=== PATIENT | male | born 2000 | race Caucasian/White ===

== ENCOUNTER 2020-09-27 07:21 | Outpatient (CLI) | payer OTHER, SELFPAY ==
--- NOTE | ~2020-09-27 | US_ITS ---
EXAMINATION: US scrotum doppler DATE: 09/27/2020 08:00 INDICATION: Left testicular pain. TECHNIQUE: Grayscale and Doppler ultrasound images of the testes were obtained. COMPARISON: None. FINDINGS: The right testis measures 4.6 x 2.2 x 3.1 cm. The left testis measures 4.7 x 2.2 x 2.8 cm. There is normal vascular flow to both testes. The right epididymis is normal with normal vascular padmini w. The left epididymis is normal with normal vascular flow. There is no hydrocele. There is a left-si ded varicocele. IMPRESSION: 1. Left-sided varicocele. Reviewed, dictated and finalized at location A. IMPRESSION: 1. Left-sided varicocele.
== END 2020-09-27 07:22 | disposition home or self-care (01) ==
PROVIDERS: PCP Emergency Medicine; Visit Provider Emergency Medicine
DX: I86.1 Scrotal varices (principal)
CPT/HCPCS: 76870; 93976

== ENCOUNTER 2020-10-09 12:38 | Outpatient (CLI) | payer OTHER, SELFPAY ==
[2020-10-12 07:18] LABS: Rapid Plasma Reagin Non-Reactive (NonReactive)
[2020-10-12 08:34] LABS: HIV 1 RNA PCR <1.30 Log cps/mL; HIV 1 RNA PCR <20 Copies/mL; Hepatitis B DNA PCR <1.00 Log IU/mL; Hepatitis B DNA PCR <10 IU/mL; Hepatitis C RNA, Quant PCR <15 IU/mL
== END 2020-10-09 12:39 | disposition home or self-care (01) ==
PROVIDERS: PCP Emergency Medicine; Visit Provider Emergency Medicine
DX: Z20.2 Contact with and (suspected) exposure to infections with a predominantly sexual mode of transmission (principal); I86.1 Scrotal varices; N50.812 Left testicular pain; Z11.4 Encounter for screening for human immunodeficiency virus [HIV]
CPT/HCPCS: 36415; 86592; 87517; 87522; 87536

== ENCOUNTER 2021-01-19 14:31 | Outpatient (CLI) | payer OTHER, SELFPAY ==
--- NOTE | 2021-01-19 14:51 | ECG_ITS ---
Measurements Intervals [place] Rate: 72 P: 62 DE: 127 QRS: 80 QRSD: 98 T: 46 QT: 371 QTc: 407 Interpretive Statements SINUS RHYTHM INCOMPLETE RIGHT BUNDLE BRANCH BLOCK BORDERLINE ECG Electronically Signed On 01-19-2021 17:17:20 CDT by Edward Francisco D.O.
[2021-01-19 14:57] LABS: Basophils Absolute Auto 0.1 K/mm3 (0.0-0.1); Basophils Percent Auto 0.9 % (0.2-1.2); Eosinophils Absolute Auto 0.1 K/mm3 (0-0.3); Eosinophils Percent Auto 1.1 % (0-4.4); Hematocrit 45.8 % (42.0-52.0); Hemoglobin 15.7 g/dL (14.0-18.0); Immature Granulocyte Absolute 0.01 K/mm3 (0.00-0.031); Immature Granulocyte Percent A 0.2 % (0-0.5); Lymphocytes Absolute Auto 1.82 K/mm3 (0.9-3.2); Lymphocytes Percent Auto 33.6 % (18.3-44.2); Mean Corpuscular HGB Conc 34.3 g/dl (32-36); Mean Corpuscular Hemoglobin 29.3 pg (26-34); Mean Corpuscular Volume 85.6 fl (80-100); Mean Platelet Volume 10.1 fl (7.4-10.4); Monocytes Absolute Auto 0.5 K/mm3 (0.1-0.6); Monocytes Percent Auto 9.6 % (2.6-8.5); Neutrophils Percent Auto 54.6 % (45.5-73.1); Platelet Count Result 193 k/mm3 (150-375); Red Blood Count 5.35 M/mm3 (4.6-6.20); White Blood Count 5.4 K/mm3 (4.5-10.0)
[2021-01-19 15:05] LABS: Alanine Aminotransferase 22 U/L (4-50); Albumin Level 4.6 g/dL (3.5-5.1); Alkaline Phosphatase 71 U/L (38-126); Anion Gap 9 mmol/L (8-16); Aspartate Amino Transferase 33 U/L (17-59); Bilirubin,Total 0.9 mg/dL (0.2-1.3); Blood Urea Nitrogen 16 mg/dL (9-20); Calcium 9.5 mg/dL (8.4-10.2); Carbon Dioxide 27 mmol/L (22-30); Chloride 102 mmol/L (98-107); Creatine Kinase 60 U/L (55-170); Estimated Glomerular Filt Rate > 60; Glucose 91 mg/dL (75-110); Sodium 138 mmol/L (137-145)
== END 2021-01-19 14:32 | disposition home or self-care (01) ==
PROVIDERS: PCP Emergency Medicine; Visit Provider Emergency Medicine
DX: E86.0 Dehydration (principal); R00.0 Tachycardia, unspecified; R00.2 Palpitations; R30.0 Dysuria; R53.83 Other fatigue; Z13.220 Encounter for screening for lipoid disorders; I45.10 Unspecified right bundle-branch block
CPT/HCPCS: 36415; 80053; 82550; 84443; 85025; 93005

== ENCOUNTER → 2021-03-02 04:34 | Outpatient (CLI) | payer OTHER, SELFPAY ==
[2021-03-02 21:10] LABS: SARS-CoV-2 RNA PCR Negative
== END ==
PROVIDERS: PCP Emergency Medicine; Visit Provider Emergency Medicine
DX: R68.89 Other general symptoms and signs (principal); Z20.822 Contact with and (suspected) exposure to COVID-19
CPT/HCPCS: C9803; U0003; U0005

== ENCOUNTER 2021-03-23 09:04 | Outpatient (CLI) | payer OTHER, SELFPAY ==
[2021-03-23 09:28] LABS: Basophils Absolute Auto 0.1 K/mm3 (0.0-0.1); Basophils Percent Auto 1.1 % (0.2-1.2); Eosinophils Absolute Auto 0.2 K/mm3 (0-0.3); Hematocrit 46.8 % (42.0-52.0); Immature Granulocyte Absolute 0.01 K/mm3 (0.00-0.031); Immature Granulocyte Percent A 0.2 % (0-0.5); Lymphocytes Percent Auto 37.9 % (18.3-44.2); Mean Corpuscular HGB Conc 34.2 g/dl (32-36); Mean Corpuscular Hemoglobin 28.8 pg (26-34); Mean Corpuscular Volume 84.2 fl (80-100); Mean Platelet Volume 9.7 fl (7.4-10.4); Monocytes Absolute Auto 0.5 K/mm3 (0.1-0.6); Monocytes Percent Auto 9.1 % (2.6-8.5); Neutrophils Absolute Auto 2.5 K/mm3 (1.3-6.7); Neutrophils Percent Auto 47.7 % (45.5-73.1); Platelet Count Result 217 k/mm3 (150-375); Red Blood Count 5.56 M/mm3 (4.6-6.20); Red Cell Distribution Width 12.1 % (11.5-14.5); White Blood Count 5.3 K/mm3 (4.5-10.0)
[2021-03-23 11:52] LABS: Alanine Aminotransferase 61 U/L (4-50); Albumin Level 4.6 g/dL (3.5-5.1); Alkaline Phosphatase 68 U/L (38-126); Anion Gap 6 mmol/L (8-16); Aspartate Amino Transferase 46 U/L (17-59); Bilirubin,Total 0.5 mg/dL (0.2-1.3); Blood Urea Nitrogen 17 mg/dL (9-20); Calcium 9.4 mg/dL (8.4-10.2); Carbon Dioxide 27 mmol/L (22-30); Chloride 105 mmol/L (98-107); Cholesterol 162 mg/dL (0-200); Estimated Glomerular Filt Rate > 60; Glucose 103 mg/dL (65-110); HDL Direct 60 mg/dL; Potassium 4.3 mmol/L (3.4-5.0); Sodium 138 mmol/L (137-145); Triglycerides 41 mg/dL (<150)
[2021-03-23 12:02] LABS: LDL Cholesterol Direct 78 mg/dL
[2021-03-26 15:14] LABS: Vitamin D 1,25 (OH)2 Total 37 pg/mL (18-72); Vitamin D2 1,25 (OH)2 <8 pg/mL; Vitamin D3 1,25 (OH)2 37 pg/mL
== END 2021-03-23 09:05 | disposition home or self-care (01) ==
LOC: ANHLAB 09:05
PROVIDERS: PCP Emergency Medicine; Visit Provider Emergency Medicine
DX: M83.9 Adult osteomalacia, unspecified (principal); R53.83 Other fatigue; E78.5 Hyperlipidemia, unspecified
CPT/HCPCS: 36415; 80053; 80061; 82652; 84443; 85025

== ENCOUNTER 2021-04-27 16:23 | Outpatient (CLI) | payer OTHER, SELFPAY | END 2021-04-27 16:24 | disposition home or self-care (01) | LOC: ANHLAB 16:24 | PROVIDERS: PCP Emergency Medicine; Visit Provider Emergency Medicine | DX: R30.0 Dysuria (principal) | CPT/HCPCS: 87086 ==

== ENCOUNTER 2021-10-26 16:06 | Outpatient (CLI) | payer OTHER, SELFPAY ==
[2021-10-26 16:47] LABS: Alanine Aminotransferase 19 U/L (4-50); Albumin Level 4.9 g/dL (3.5-5.1); Alkaline Phosphatase 66 U/L (38-126); Anion Gap 9 mmol/L (8-16); Aspartate Amino Transferase 27 U/L (17-59); Bilirubin,Total 0.5 mg/dL (0.2-1.3); Blood Urea Nitrogen 24 mg/dL (9-20); Calcium 9.1 mg/dL (8.4-10.2); Carbon Dioxide 28 mmol/L (22-30); Chloride 103 mmol/L (98-107); Estimated Glomerular Filt Rate > 60; Glucose 99 mg/dL (65-110); Potassium 4.3 mmol/L (3.4-5.0); Sodium 140 mmol/L (137-145)
[2021-10-26 16:48] LABS: Rheumatoid Factor < 8.6 IU/ML (<12)
[2021-10-26 16:55] LABS: Basophils Absolute Auto 0.1 K/mm3 (0.0-0.1); Basophils Percent Auto 0.7 % (0.2-1.2); Eosinophils Absolute Auto 0.1 K/mm3 (0-0.3); Eosinophils Percent Auto 1.5 % (0-4.4); Hematocrit 47.6 % (42.0-52.0); Hemoglobin 15.9 g/dL (14.0-18.0); Immature Granulocyte Absolute 0.02 K/mm3 (0.00-0.031); Immature Granulocyte Percent A 0.2 % (0-0.5); Lymphocytes Absolute Auto 2.63 K/mm3 (0.9-3.2); Lymphocytes Percent Auto 29.8 % (18.3-44.2); Mean Corpuscular HGB Conc 33.4 g/dl (32-36); Mean Corpuscular Hemoglobin 28.8 pg (26-34); Mean Corpuscular Volume 86.2 fl (80-100); Mean Platelet Volume 10.1 fl (7.4-10.4); Monocytes Absolute Auto 0.7 K/mm3 (0.1-0.6); Monocytes Percent Auto 8.1 % (2.6-8.5); Neutrophils Absolute Auto 5.3 K/mm3 (1.3-6.7); Neutrophils Percent Auto 59.7 % (45.5-73.1); Platelet Count Result 233 k/mm3 (150-375); Red Blood Count 5.52 M/mm3 (4.6-6.20); Red Cell Distribution Width 12.2 % (11.5-14.5); White Blood Count 8.8 K/mm3 (4.5-10.0)
[2021-10-26 17:15] LABS: Thyroid Stimulating Hormone 0.941 uIU/mL (0.465-4.680)
== END 2021-10-26 16:07 | disposition home or self-care (01) ==
LOC: ANHLAB 16:08
PROVIDERS: PCP Emergency Medicine; Visit Provider Emergency Medicine
DX: R53.83 Other fatigue (principal); Z13.6 Encounter for screening for cardiovascular disorders
CPT/HCPCS: 36415; 80053; 84443; 85025; 86038; 86430

== ENCOUNTER 2022-01-08 07:05 | Outpatient (CLI) | payer OTHER, SELFPAY ==
[2022-01-08 07:39] LABS: Hematocrit 45.7 % (42.0-52.0); Hemoglobin 16.2 g/dL (14.0-18.0); Mean Corpuscular HGB Conc 35.4 g/dl (32-36); Mean Corpuscular Hemoglobin 29.6 pg (26-34); Mean Corpuscular Volume 83.5 fl (80-100); Platelet Count Result 205 k/mm3 (150-375); Red Blood Count 5.47 M/mm3 (4.6-6.20)
[2022-01-08 07:54] LABS: Alanine Aminotransferase 23 U/L (6-50); Albumin Level 4.5 g/dL (3.5-5.1); Alkaline Phosphatase 61 U/L (38-126); Anion Gap 5 mmol/L (8-16); Aspartate Amino Transferase 26 U/L (17-59); Bilirubin,Total 0.8 mg/dL (0.2-1.3); Blood Urea Nitrogen 21 mg/dL (9-20); CRP < 0.5 mg/dL (<1.0); Calcium 9.2 mg/dL (8.4-10.2); Carbon Dioxide 29 mmol/L (22-30); Chloride 104 mmol/L (98-107); Estimated Glomerular Filt Rate > 60; Glucose 92 mg/dL (65-110); Potassium 4.3 mmol/L (3.4-5.0); Sodium 138 mmol/L (137-145)
[2022-01-08 08:31] LABS: Erythrocyte Sedimentation Rate 1 mm/hr (0-20)
== END 2022-01-08 07:06 | disposition home or self-care (01) ==
LOC: ANHLAB 07:06
PROVIDERS: PCP Emergency Medicine; Visit Provider Internal Medicine Hematology & Oncology
DX: D72.821 Monocytosis (symptomatic) (principal)
CPT/HCPCS: 36415; 80053; 85027; 85652; 86038; 86140; 88184

== ENCOUNTER 2022-03-25 09:42 | Outpatient (CLI) | payer BC, SELFPAY ==
--- NOTE | 2022-03-25 09:58 | ECG_ITS ---
Measurements Intervals [place] Rate: 70 P: 42 GA: 129 QRS: 72 QRSD: 100 T: 40 QT: 375 QTc: 407 Interpretive Statements SINUS RHYTHM COMPARED TO ECG 01/19/2021 14:59:58 NO SIGNIFICANT CHANGES Electronically Signed On 03-25-2022 12:37:37 CDT by Edward Francisco D.O.
== END 2022-03-25 09:43 | disposition home or self-care (01) ==
LOC: ANHLAB 09:49
PROVIDERS: PCP Emergency Medicine; Visit Provider Emergency Medicine
DX: R00.2 Palpitations (principal)
CPT/HCPCS: 93005

== ENCOUNTER 2022-03-28 12:01 | Outpatient (CLI) | payer BC, SELFPAY ==
[2022-03-28 12:28] LABS: Alanine Aminotransferase 30 U/L (6-50); Albumin Level 4.8 g/dL (3.5-5.1); Alkaline Phosphatase 75 U/L (38-126); Anion Gap 11 mmol/L (8-16); Aspartate Amino Transferase 48 U/L (17-59); Bilirubin,Total 0.7 mg/dL (0.2-1.3); Blood Urea Nitrogen 10 mg/dL (9-20); Calcium 9.2 mg/dL (8.4-10.2); Carbon Dioxide 26 mmol/L (22-30); Chloride 101 mmol/L (98-107); Estimated Glomerular Filt Rate > 60; Glucose 95 mg/dL (65-110); Potassium 4.1 mmol/L (3.4-5.0); Sodium 138 mmol/L (137-145)
[2022-03-28 13:16] LABS: Free T4 Free Thyroxine 1.15 ng/mL (0.78-2.19)
== END 2022-03-28 12:02 | disposition home or self-care (01) ==
LOC: ANHLAB 12:03
PROVIDERS: PCP Emergency Medicine; Visit Provider Emergency Medicine
DX: R53.83 Other fatigue (principal)
CPT/HCPCS: 36415; 80053; 83735; 84439; 84443

== ENCOUNTER 2023-04-14 09:29 | Outpatient (CLI) | payer BC, SELFPAY ==
[2023-04-14 09:58] LABS: Basophils Percent Auto 0.8 % (0.2-1.2); Eosinophils Absolute Auto 0.1 K/mm3 (0-0.3); Eosinophils Percent Auto 2.4 % (0-4.4); Hematocrit 48.1 % (42.0-52.0); Hemoglobin 16.1 g/dL (14.0-18.0); Immature Granulocyte Absolute 0.03 K/mm3 (0.00-0.031); Immature Granulocyte Percent A 0.6 % (0-0.5); Lymphocytes Absolute Auto 1.85 K/mm3 (0.9-3.2); Lymphocytes Percent Auto 36.3 % (18.3-44.2); Mean Corpuscular HGB Conc 33.5 g/dl (32-36); Mean Corpuscular Hemoglobin 29.1 pg (26-34); Monocytes Absolute Auto 0.5 K/mm3 (0.1-0.6); Monocytes Percent Auto 9.4 % (2.6-8.5); Neutrophils Absolute Auto 2.6 K/mm3 (1.3-6.7); Neutrophils Percent Auto 50.5 % (45.5-73.1); Platelet Count Result 214 k/mm3 (150-375); Red Blood Count 5.53 M/mm3 (4.6-6.20); Red Cell Distribution Width 11.9 % (11.5-14.5); White Blood Count 5.1 K/mm3 (4.5-10.0)
[2023-04-14 10:08] LABS: Alanine Aminotransferase 33 U/L (6-50); Albumin Level 4.6 g/dL (3.5-5.1); Alkaline Phosphatase 62 U/L (38-126); Anion Gap 6 mmol/L (8-16); Aspartate Amino Transferase 30 U/L (17-59); Bilirubin,Total 0.8 mg/dL (0.2-1.3); Blood Urea Nitrogen 16 mg/dL (9-20); Calcium 9.1 mg/dL (8.4-10.2); Carbon Dioxide 29 mmol/L (22-30); Chloride 103 mmol/L (98-107); Cholesterol 156 mg/dL (0-200); Estimated Glomerular Filt Rate > 60; Glucose 93 mg/dL (65-110); HDL Direct 49 mg/dL; Magnesium 1.9 mg/dL (1.6-2.3); Potassium 4.2 mmol/L (3.4-5.0); Sodium 138 mmol/L (137-145); Triglycerides 42 mg/dL (<150)
[2023-04-14 10:19] LABS: LDL Cholesterol Direct 85 mg/dL
== END 2023-04-14 09:30 | disposition home or self-care (01) ==
PROVIDERS: PCP Emergency Medicine; Visit Provider Internal Medicine Cardiovascular Disease
DX: R00.2 Palpitations (principal)
CPT/HCPCS: 36415; 80053; 80061; 83735; 84443; 85025

== ENCOUNTER 2023-06-28 09:40 | Outpatient (CLI) | payer BC, SELFPAY ==
--- NOTE | 2023-06-28 09:58 | ECHO_ITS ---
Patient Info Name: Rogelio Plata Age: 23 years : 2000 Gender: Male Ht: 70 in Wt: 187 lbs BSA: 2.06 m2 HR: 79 bpm BP: 122 / 74 mmHg Technical Quality: Good Exam Date: 06/28/2023 10:01 AM Exam Location: Echo Lab Patient Status: Outpatient Admit Date: 06/28/2023 Staff Ordering Physician: Edward Francisco DO Attending Provider: Edward Francisco DO Referring Physician: Nolan NATION; Exam Type: CA echo dop color flow w con Study Info Indications I49.3 - Ventricular premature depolarization Complete two-dimensional, color flow and Doppler transthoracic echocardiogram is performed. Summary 1. Complete two-dimensional, color flow and Doppler transthoracic echocardiogram is performed. 2. Left ventricular chamber dimension is normal. 3. Left ventricular systolic function is normal, estimated at 60-65%. 4. The left ventricular diastolic function is normal. 5. E/e' 6 is not elevated. 6. There is trace tricuspid valve regurgitation. 7. There is trace pulmonic regurgitation. Left Ventricle E/e' 6 is not elevated. Left ventricular chamber dimension is normal. Left ventricular systolic function is normal, estimated at 60-65%. The left ventricular diastolic function is normal. Right Ventricle Right ventricular chamber dimension is normal. Right ventricular systolic function is normal. Left Atria Left atrial chamber dimension is normal. Right Atria Right atrial chamber dimension is normal. Aortic Valve The aortic valve is trileaflet. There is no aortic valve stenosis. There is no aortic valve regurgitation. Pulmonic Valve There is trace pulmonic regurgitation. Mitral Valve There is no mitral valve stenosis. There is no mitral valve regurgitation. Tricuspid Valve RVSP is not calculated due to an inadequate TR jet. There is trace tricuspid valve regurgitation. Pericardium/Pleural There is no pericardial effusion. Inferior Vena Cava Normal inferior vena cava with >50% collapse upon inspiration consistent with normal right atrial pressure, 5 mmHg. Aorta The aortic root size at the sinus of Valsalva is normal. Left Ventricular Outflow Tract Name Value Normal LVOT 2D LVOT Diameter 2.15 cm Pulmonic Valve Name Value Normal PV Doppler PV Peak Gradient 4 mmHg Mitral Valve Name Value Normal MV Doppler MV Peak Gradient 2 mmHg MV Mean Gradient 1 mmHg MV Decel Glenn 494.43 cm/s2 MV PHT 0 s MV Area (PHT) 4.08 cm2 4.00-5.00 MV Diastolic Function MV E Peak Velocity 91.83 cm/s MV A Peak Velocity 70.62 cm/s
== END 2023-06-28 09:41 | disposition home or self-care (01) ==
PROVIDERS: PCP Emergency Medicine; Visit Provider Internal Medicine Cardiovascular Disease
DX: R93.1 Abnormal findings on diagnostic imaging of heart and coronary circulation (principal); I07.1 Rheumatic tricuspid insufficiency; I37.1 Nonrheumatic pulmonary valve insufficiency; I49.3 Ventricular premature depolarization
CPT/HCPCS: 93306; C8929

== ENCOUNTER 2025-03-28 09:51 | Outpatient (CLI) | payer BC, SELFPAY ==
--- OUTSIDE RECORDS SUMMARY | 2025-03-28 10:33 | XMS_ITS | Encounter Summary ---
Author Organization [facility] Address [address] [place] [address] Phone Care Team Providers Care Change Management Manager Name Role Phone Mary Hodgson MD Primary Care Provider [phone] Kaz Bergman MD Primary Care Provide r Encounter Details Date Type Department Care Team (Latest Contact Info) Description 06/28/2023 Orders Only [facility] Scanning, Provider Social History Tobacco Use Types Packs/Day Years Used Date Smoking Tobacco: Never Assessed Sex and Gender Information Value Date Recorded Sex Assigned at Not on file 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 Gender Identity Not on file Sexual Orientation Not on file documented as of this encounter Plan of Treatment Not on file documented as of this encounter Procedures Procedure Name Priority Date/Time Associated Diagnosis Comments CARDIOLOGY DOCUMENT SCAN 06/28/2023 documented in this encounter Results * Cardiology Document Scan (06/28/2023) Anatomical Region Laterality Modality Other us Provider Scanning CV CARDIAC SERVICES PROCEDURES Final Result documented in this encounter Visit Diagnoses Not on filedocumented in this encounter Care Teams Change Management Manager Relationship Specialty Start Date End Date Mary Hodgson MD PCP - General 01/21/16 05/02/24 Kaz Bergman MD [address] [place] [address] PCP - General Emergency Medicine 05/03/24 documented as of this encounter
--- OUTSIDE RECORDS SUMMARY | 2025-03-28 10:33 | XMS_ITS | Clinical Summary ---
[facility] Address [address] [place] [address] Care Team Providers Care Credit Reference Clerk Name Role Phone Kaz Bergman MD Primary Care Provider Allergies No known active allergies Medications No known medications Active Problems Problem Noted Date Diagnosed Date Monocytosis 12/29/2021 Family History Relation Name Status Comments Father Alive Mother Alive Social History Tobacco Use Types Packs/Day Years Used Date Smoking Tobacco: Never Smokeless Tobacco: Never Alcohol Use Standard Drinks/Week Comments Not Currently 0 (1 standard drink = 0.6 oz pur e alcohol) Sex and Gender Information Value Date Recorded Sex Assigned at Not on file 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 Gender Identity Not on file Sexual Orientation Not on file Last Filed Vital Signs Vital Sign Reading Time Taken Comments Blood Pressure 160/90 12/29/2021 2:43 PM CDT Pulse 91 12/29/2021 2:43 PM CDT Temperature 37 C (98.6 F) 12/29/2021 2:43 PM CDT Respiratory Rate - - Oxygen Saturation 98% 12/29/2021 2:43 PM CDT Inhaled Oxygen Concentration - - Weight 78.2 kg (172 lb 4.8 oz) 12/29/2021 2:43 P M CDT Height 177.8 cm (5' 10) 12/29/2021 2:43 PM CDT Body Mass Index 24.72 12/29/2021 2:43 PM CDT Plan of Treatment Health Maintenance Due Date Last Done Comments HPV VACCINES (1 - Male 3-dose series) 2014 DTAP/TDAP/TD VACCINES (1 - Tdap) 2018 HEPATITIS B VACCINES (1 of 3 - 19+ 3-dose series) 2018 INFLUENZA VACCINE (#1) 2025 COVID-19 Vaccine ( - 2024- season) 03/17/202511/2020, 10/20/2020 Insurance [employer] ACCESS CHOICE Care Teams Credit Reference Clerk Relationship Specialty Start Date End Date Kaz Bergman MD [address] [place] [phone] PCP - General Internal Medicine 12/29/21
--- OUTSIDE RECORDS SUMMARY | 2025-03-28 10:33 | XMS_ITS | Clinical Summary ---
Author Organization [facility] Address [facility] [place] [address] Care Team Providers Care Waterproofing Supervisor Name Role Phone Kaz Bergman MD Primary Care Provide r Allergies No known active allergies Medications multivitamin with minerals tablet Take 1 tablet by mouth daily Active Active Problems Problem Noted Date Diagnosed Date Ventricular bigeminy 05/03/2024 PVC's (premature ventricular contractions) 05/03 Family history of early CAD 05/03/2024 Social History Tobacco Use Types Packs/Day Years Used Date Smoking Tobacco: Never Passive Smoke Exposure: Never Smokeless Tobacco: Never Personal Safety Answer Date Recorded Getting School Help Needed Not on file 04/22 Sex and Gender Information Value Date Recorded Sex Assigned at Not on file 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 Gender Identity Not on file Sexual Orientation Not on file Obstetrics History Last Filed Vital Signs Vital Sign Reading Time Taken Comments Blood Pressure 134/72 05/03/2024 7:54 AM CDT Pulse 71 05/03/2024 7:54 AM CDT Temperature - - Respiratory Rate - - Oxygen Saturation 98% 05/03/2024 7:54 AM CDT Inhaled Oxygen Concentration - - Weight 83.9 kg (185 lb) 05/03/2024 7:54 AM CDT p t reported Height 177.8 cm (5' 10) 05/03/2024 7:54 AM CDT Body Mass Index 26.54 05/03/2024 7:54 AM CDT Plan of Treatment Health Maintenance Due Date Last Done Comments Depression Screening 2000 Hepatitis C Screening 2000 Regular Well Visit/Exam 18-64 2017 Covid-19 Vaccine (3 - 2025-26 season) 2025 11/18/2020, 10/20/2020 Influenza Vaccine (#1) 2025 , 05/16/2013, 05/21/2012, Additional history exists DTaP/Tdap/Td Vaccine (3 - Td or Tdap) 09/01/2033 09/01/2023, 10/24/2011 Varicella Vaccines Completed 04/20/2010, 06/14/2000 HPV Vaccines Completed 02/26/2014, 10/16, 03/05/2013 Hepatitis B Screening Completed 10/17/2023, 024 Pneumococcal vaccine <65 Aged Out No longer eligible based on patient's age to complete this topic Insurance [employer] Care Teams Waterproofing Supervisor Relationship Specialty Start Date End Date Kaz Bergman MD [address] [place] [address] PCP - General Emergency Medicine 05/03/24
--- OUTSIDE RECORDS SUMMARY | 2025-03-28 10:33 | XMS_ITS | Clinical Summary ---
Author Organization [facility] Address [address] [place] [address] Care Team Providers Care Painter Aircraft Name Role Phone Unavailable Primary Care Provider Unavailabl e Source Comments [facility],non-owned Affiliates and Associated Physician Practices is amultiple site organization consisting of ambulatory clinics and hospital sitesin [place], [place], [place] and [place]. This disclosure is being madepursuant to the Care Everywhere program and may not contain all information available regarding this patient. Last updated 18.[facility] Immunizations Immunization Administration Dates Next Due Covid Moderna primary monovalent 12+ yr 0.5mL ,10/20/2020 Social History Tobacco Use Types Packs/Day Years Used Date Smoking Tobacco: Never Assessed Sex and Gender Information Value Date Recorded Sex Assigned at Not on file Legal Sex Male 11:12 AM CDT Gender Identity Not on file Sexual Orientation Not on file Plan of Treatment Health Maintenance Due Date Last Done Comments HIV SCREENING 2014 HPV VACCINE (1 - Male 3-dose series) 2014 HEPATITIS C SCREENING 05/28/2017 DTAP/TDAP/TD VACCINES (1 - Tdap) 2018 HEPATITIS B VACCINE (1 of 3 - 19+ 3-dose series) 2018 COVID-19 VACCINE (3 - season) 2024 11/18/2020, 10/20/2020 DEPRESSION SCREENING 07/17/2024 INFLUENZA VACCINE (#1) 2025 1, 05/15/2008, 05/11/2006, Additional history exists ZOSTER VACCINE (1 of 2) 2049 HIB VACCINE Aged Out No longer eligi ble based on patient's age to complete this topic MENINGOCOCCAL (Group B) VACCINE SHARED DECISION-MAKING Aged Out No longer eligible based on patient's age to complete this topic MENINGOCOCCAL GROUPS A/C/Y/W VACCINE Aged Out No longer eligible based on patient's age to complete this topic PNEUMOCOCCAL VACCINE Aged Out No long er eligible based on patient's age to complete this topic Insurance [employer] HE[employer]
--- OUTSIDE RECORDS SUMMARY | 2025-03-28 10:33 | XMS_ITS | Encounter Summary ---
Author Organization [facility] Address [address] Attn: Epic Prelude ADT [facility] [place] [id number] Care Team Providers Care Assistant Professor Of History Name Role Phone Kaz Bergman MD Primary Care Provider Encounter Details Date Type Department Care Team (Late st Contact Info) Description 2000 Inpatient Historical David Rosas MD [address] [place] [address], [place] [address] Kali Reyes MD [address] [place] [address], [place] [address] Single liveborn, born in hospital, delivered by delivery (Primary Dx) Social History Tobacco Use Types Packs/Day Years Used Date Smoking Tobacco: Never Assessed Sex and Gender Information Value Date Recorded Sex Assigned at Not on file 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
[2025-03-28 10:37] LABS: Hematocrit 48.6 % (42.0-52.0); Hemoglobin 16.2 g/dL (14.0-18.0); Immature Granulocyte Percent A 0.3 % (0-0.5); Lymphocytes Absolute Auto 1.80 K/mm3 (0.9-3.2); Mean Corpuscular HGB Conc 33.3 g/dl (32-36); Mean Corpuscular Hemoglobin 28.8 pg (26-34); Mean Corpuscular Volume 86.3 fl (80-100); Nucleated Red Blood Cells Absolute Auto 0.000 K/mm3 (0.0-0.012); Nucleated Red Blood Cells Perc 0.0 % (0.0-0.2); Platelet Count Result 223 k/mm3 (150-375); Red Blood Count 5.63 M/mm3 (4.6-6.20); White Blood Count 7.1 K/mm3 (4.5-10.0)
[2025-03-28 10:49] LABS: Hemoglobin A1C 5.1 % (<5.7)
[2025-03-28 10:52] LABS: Alanine Aminotransferase 18 U/L (6-50); Albumin Level 4.6 g/dL (3.5-5.1); Alkaline Phosphatase 73 U/L (38-126); Anion Gap 9 mmol/L (4-12); Aspartate Amino Transferase 30 U/L (17-59); Bilirubin,Total 0.7 mg/dL (0.2-1.3); Blood Urea Nitrogen 20 mg/dL (9-20); Calcium 9.4 mg/dL (8.4-10.2); Carbon Dioxide 28 mmol/L (22-30); Chloride 103 mmol/L (98-107); Cholesterol 135 mg/dL (0-200); Estimated Glomerular Filt Rate > 60; Glucose 87 mg/dL (65-110); HDL Direct 42 mg/dL; Potassium 4.5 mmol/L (3.4-5.0); Sodium 140 mmol/L (137-145); Total Protein 7.7 g/dL (6.3-8.2); Triglycerides 56 mg/dL (<150)
[2025-03-28 11:28] LABS: Thyroid Stimulating Hormone 1.220 uIU/mL (0.465-4.680)
== END 2025-03-28 09:52 | disposition home or self-care (01) ==
LOC: ANHLAB 09:53
PROVIDERS: PCP Emergency Medicine; Visit Provider Emergency Medicine
DX: E78.5 Hyperlipidemia, unspecified (principal); I10 Essential (primary) hypertension; R53.83 Other fatigue; E55.9 Vitamin D deficiency, unspecified; Z13.1 Encounter for screening for diabetes mellitus; Z13.220 Encounter for screening for lipoid disorders; Z13.6 Encounter for screening for cardiovascular disorders
CPT/HCPCS: 36415; 80053; 80061; 82306; 83036; 84443; 85025